=== PATIENT | male | born 2000 | race Caucasian/White ===

== ENCOUNTER 2018-02-10 20:26 | Emergency (ER) | payer BC ==
[2018-02-10] MEDS ORDERED: LORazepam TAB(*) 1 MG PO ONE (20:58)
--- NOTE | 2018-02-10 20:59 | ED ---
Complex/Multi-Sys Presentation - HPI Summary HPI Summary: The pt is a 17 y/o male presenting [facility] s/p a panic attack 2 days ago triggered by stress about a presentation project. He notes palpitations, dyspnea , anxiety, and insomnia. The sx persisted although the presentation proceeded well 1 day ago.He is a student at [employer]. - History Of Current Complaint Chief Complaint: EDPsychosocial Time Seen by Provider: 02/10/18 20:54 Hx Obtained From: Patient Onset/Duration: Sudden Onset, Lasting Days - 2, Still Present Timing: Constant Aggravating Factor(s): School- related stress Associated Signs And Symptoms: Positive: Palpitations, Other - Dyspnea, Anxiety - Allergies/Home Medications Allergies/Adverse Reactions: Allergies Allergy/AdvReac Type Severity Reaction Status Date / Time No Known Allergies Allergy Verified 02/10/18 20:30 PMH/Surg Hx/FS Hx/Imm Hx Previously Healthy: Yes Endocrine/Hematology History: Denies: Hx Diabetes Cardiovascular History: Denies: Hx Hypertension Respiratory History: Denies: Hx Asthma Sensory History: Denies: Hx Deafness - Cancer History Cancer Type, Location and Year: None reported Infectious Disease History: No Infectious Disease History: Denies: Traveled Outside the [place] in Last 30 Days - Family History Known Family History: Negative: Hypertension, Seizure Disorder - Social History Occupation: Student Lives: Dormitory/Roommates Review of Systems Constitutional: Other - Positive: Insomia Positive: Palpitations Respiratory: Other - Positive: Dyspnea Positive: Anxious All Other Systems Reviewed And Are Negative: Yes Physical Exam - Summary Physical Exam Summary: Appearance: Well-appearing, Well-nourished, lying in bed comfortably Skin: Warm, dry, no obvious rash Eyes: sclera anicteric, no conjunctival pallor ENT: mucous membranes moist, pharynx appears normal Neck: Supple, nontender Respiratory: Clear to auscultation, no signs of respiratory distress Cardiovascular: Normal S1, S2. No murmurs. Normal distal pulses in tibial and radial bilaterally. Abdomen: Soft, nontender, normal active bowel sounds present Musculoskeletal: Normal, Strength/ROM Intact Neurological: A&Ox3, awake and alert, mentation is normal, speech is fluent and appropriate Psychiatric: affect is normal, does not appear anxious or depressed Triage Information Reviewed: Yes Vital Signs On Initial Exam: Initial Vitals Temp Pulse Resp BP Pulse Ox 98.3 F 90 25 140/93 97 02/10/18 20:28 02/10/18 20:28 02/10/18 20:28 02/10/18 20:28 02/10/18 20:28 Vital Signs Reviewed: Yes Diagnostics - Vital Signs Vital Signs Temp Pulse Resp BP Pulse Ox 02/10/18 20:28 98.3 F 90 25 140/93 97 - Laboratory Lab Statement: Any lab studies that have been ordered have been reviewed, and results considered in the medical decision making process. Complex Multi-Symp Course/Dx Course Of Treatment: A 17 year-old M presents to the ED with a CC of dyspnea since 2 days ago s/p a panic attack. He notes palpitations, anxiety and insomnia. In the ED course, the pt was given Lorazepam 1mg PO which improved the sx. A physical exam revealed is unremarkable. Allergies noted Discharge - Sign-Out/Discharge Documenting (check all that apply): Patient Departure - DC - Discharge Plan Condition: Good Disposition: HOME Prescriptions: LORazepam TAB(*) [Ativan 1 MG TAB (*)] 1 mg PO Q8H PRN #6 tab MDD 2 mg PRN Reason: Anxiety Patient Education Materials: Anxiety (ED), Anxiolysis in Adults (ED) Referrals: [facility] @ [Outside] - Attestation Statements Document Initiated by Scribe: Yes Documenting Scribe: Sonia Shore Provider For Whom Scribe is Documenting (Include Credential): Dr. Ed Lomeli MD Scribe Attestation: Sonia Aguila , scribed for Dr. Ed Lomeli MD on 02/10/18 at 2131.
[2018-02-10 21:45] VITALS: BP 123/69
--- NOTE | 2018-02-11 12:27 | ED ---
Progress - Progress Note Progress Note: 02/11/18 12:25pm. Pt called stating that lorazepam 1mg RX was not transmitted to [facility]. pharmacy. Pt requests it to be transmitted to [facility] instead. RX at [facility] cancelled with Mirela (female) at [facility] by phone, so no chance for two fills of RX, and she confirms it was not received. Rx sent per same directions, quantity and MDD as Dr. Robert's RX to [facility]. Confirmation noted by me that Rx was sent to [facility]. Jimi PEREZ MD Course/Dx - Course Course Of Treatment: A 17 year-old M presents to the ED with a CC of dyspnea since 2 days ago s/p a panic attack. He notes palpitations, anxiety and insomnia. In the ED course, the pt was given Lorazepam 1mg PO which improved the sx. A physical exam revealed is unremarkable. Allergies noted Discharge - Sign-Out/Discharge Documenting (check all that apply): Post-Discharge Follow Up - RX sent to different pharmacy - Discharge Plan Condition: Good Disposition: HOME Prescriptions: LORazepam [Lorazepam] 1 mg PO Q8H #6 tablet MDD 2 Patient Education Materials: Anxiety (ED), Anxiolysis in Adults (ED) Referrals: [facility] @ [Outside] - Billing Disposition and Condition Condition: GOOD Disposition: Home
== END 2018-02-10 21:45 | disposition home or self-care (01) ==
LOC: ED 20:26
DX: F41.0 Panic disorder [episodic paroxysmal anxiety] (principal); R06.00 Dyspnea, unspecified
CPT/HCPCS: 99282; A9270-GY